=== PATIENT | female | born 1975 | race Caucasian/White ===

== ENCOUNTER 2017-04-13 19:38 | Emergency (ER) | payer OTHER ==
--- NOTE | 2017-04-13 22:00 | ED NURSING NOTES ---
Clinical Report - Nurses [facility] [address] [place] [address] 04/13/2017 19:39 Patient: HELLEN GRANADOS TRIAGE Triage time 1940. Acuity: LEVEL 3. Chief Complaint: ANXIETY and (pt states that she has been very anxious because of negative energy from people yelling and fighting--and that negative energy "saps the energy " out of her). --20:02 Sherrie Fischer R.N. 19:40 04/13/17. BP: 169/102. HR: 110. RR: 20. O2 saturation: 100%. Temp: 98.5 F. Pain level now: 0/10. --20:02 Sherrie Fischer R.N. Weight: 45.3 kg stated. Height/Length: 61 inches Per Patient. BMI: 18.9. --19:56 Sherrie Fischer R.N. Medications Gabapentin Oral (Tablet 800 mg) 1 tablet, 3x a day. HydrOXYzine HCl Oral 25 mg. Zoloft Oral 25 mg, daily. --19:48 Sherrie Fischer R.N. Motrin 400mg today at 0800. --19:49 Sherrie Fischer R.N. Tylenol 500mg po this a 0800. --19:50 Sherrie Fischer R.N. Allergies No Known Drug Allergy. --19:47 Sherrie Fischer R.N. History Arrived by EMS. Historian: patient. Unaccompanied. Primary physician (bing muniz has appointment with [facility] on Saturday -in [place] for [facility]). ( "Im just so overloaded""I can't keep living like this' "I have no control about being ok right now"). She has had anxiety. ( pt states she has also been having vag bleeding x 2 months "almost non-stop". Pt also has possible broken toe to rt 5th toe, hit on wall about 2 weeks ago). PAST MEDICAL HX: Last normal menstrual period- iud. SOCIAL HX: Light tobacco smoker (cigarette)- less than 1/2 a pack per day. Occasional alcohol use. History of drug use: methamphetamines. (veryoccasionally). SELF HARM ASSESSMENT: A self harm assessment was performed. The patient answered "yes" to the question "Have you recently felt down, depressed, or hopeless?" and "Do you have any dangerous items in your possession?" and "no" to the question "Have you noticed less interest or pleasure in doing things?", "Are you here because you tried to hurt yourself?", "Have you ever tried to hurt yourself before today?" and "Have you recently had thoughts about harming or killing others?". Unable to assess the patient in regard to the question "Do you have thoughts of harming or killing yourself?". (I can't keep living like this, but answers "no" when asked if she wants , has a razorblade she found on the ground, she has been walking into traffic). --20:02 Sherrie Fischer R.N. PROBLEMS: Lifestyle / Substance Problems. Narcotic Withdrawal. Sinus Tachycardia. Fibromyalgia. Myalgias. Ovarian Cyst. Cellulitis. --19:56 Sherrie Fischer R.N. PTSD. --20:01 Sherrie Fischer R.N. ADDITIONAL SURGERIES: . Oophorectomy. Tubal Ligation. --19:56 Sherrie Fischer R.N. Interventions ID band on patient. To treatment room. --20:02 Sherrie Fischer R.N. PHYSICAL ASSESSMENT 1940. To room via stretcher. Patient gowned. GENERAL / NEURO / PSYCH: Alert. Appears anxious. Speech within normal limits. Patient appears calm and cooperative. Good eye contact. RESPIRATORY: Respirations not labored. CVS: Capillary refill less than 2 seconds. GI / : Abdomen soft. SKIN: ( rt 5th toe swelling and painful.). --21:27 Sherrie Fischer R.N. NURSING PROGRESS NOTES 19:40. Patient gowned. Head of bed elevated. Reassurance given. Patient identifiers checked. Call light placed in reach. Side rails up. Bed placed in lowest position. Patient ready for evaluation- chart flagged. --20:02 Sherrie Fischer R.N. 20:30. Patient ID band checked for patient name and birthdate: patient confirmed. Clean catch urine collected with return of yellow-colored clear urine; sample sent to lab for urinalysis, culture and drug screen. Specimen labeled in the presence of the patient. --21:03 Sherrie Fischer R.N. 20:45 04/13/2017 Site #1 started via IV in the right antecubital space with an 22g angiocath; one attempt. Blood drawn: rainbow set and pediatric tubes. Labeled in the presence of the patient and sent to the lab. Saline lock flushed with 10 mL saline. --21:03 Sherrie Fischer R.N. 20:45 04/13/2017 Started bag #1 1000 mL IV Fluids IV NS (Saline); at 1000 mL/hr over 1 hour(s) via site #1 via IV pump. IV patency established. IV site checked: no pain, redness, or swelling. IV flushed thoroughly pre- and post-medication administration. --21:04 Sherrie Fischer R.N. 20:50 04/13/2017 Benadryl (DiphenhydrAMINE HCl) IVP 50 mg given over 2 minute(s) via site #1. IV patency established. IV site checked: no pain, redness, or swelling. IV flushed thoroughly pre- and post-medication administration. IVP given by RN. --21:05 Sherrie Fischer R.N. 20:45 IV started and dlabs drawn. --21:25 Sherrie Fischer R.N. 21:15. ( Pt given po food and fluids. has turned off IV fluidsx x 2 now because "it was going too fast" , ERNP notified.). --21:26 Sherrie Fischer R.N. 21:20. ( rt toe prema taped per pt request. and pt given vag pads and mesh panties). --21:28 Sherrie Fischer R.N. 21:30 04/13/2017 Site #1 removed. Bandaid applied (pt pulled out own IV , dressing was placed over site). --22:21 Sherrie Fischer R.N. 21:30 04/13/2017 IV Fluids IV NS Discontinued: bag #1 STOPPED. Total amount infused: 300 mL. IV patency established. IV site checked: no pain, redness, or swelling. IV flushed thoroughly. (pt pulled out IV). --22:21 Sherrie Fischer R.N. 21:30 04/13/2017 IV Saline Lock Drip IV Discontinued: STOPPED. Total amount infused: 0 mL (pt pulled out iv site). --22:22 Sherrie Fischer R.N. 22:00 04/13/2017 Ativan (LORazepam) PO Tablets 1 mg given. Allergies verified, confirmed 5 rights and sedative warning given to the patient. --22:14 Sherrie Fischer R.N. 21:35 Pt out at desk, asking for her clothes and states she wants to go home. Pt has pulled out IV and gone thru drawers to find a bandaid to put on site. ERPA notified. --22:15 Sherrie Fischer R.N. 21:55 Pt given po meds and dc instructions, pt very tearful states "this is the worst night ever" I attempted to console pt telling her that she had stated she was dehydrated and that we were just trying to help her, she continued to have random statements about then universe and energy and how she isn't feeling right. --22:17 Sherrie Fischer R.N. 22:00 Pt given clothing from locker by [facility]. --22:17 Sherrie Fischer R.N. DISPOSITION / DISCHARGE 22:00. Condition at departure: stable. No learning barriers present. Discharge instructions provided and reviewed with the patient. Reviewed referrals (follow up with [facility] as scheduled on Saturday). Patient verbalized understanding. Written instructions provided in Slovenian. The patient was unaccompanied at time of discharge. She left the Emergency Department ambulatory. --22:20 Sherrie Fischer R.N. 22:05 04/13/17. BP: 140/98. HR: 92. RR: 20. O2 saturation: 100%. Temp: deferred. Pain level now: cannot qualify. --22:20 Sherrie Fischer R.N. Locked/Released at 04/13/2017 22:22 by Sherrie Fischer R.N.
--- NOTE | 2017-04-13 22:00 | ED ORDER SUMMARY ---
..... Patient: HELLEN GRANADOS OrderSheet [facility] VisitID: [id number] [place] [address] 41y, F Registration Date/Time: 04/13/2017 ORDER SHEET Weight: 45.3 kg (stated) Allergies: No Known Drug Allergy GENERAL ORDERS: CBC w Diff Urgent (20:14 04/13/2017 HBivens A.R.N.P.) (Ack 20:16 CHagerty ER Head Athletic Trainer) (21:03 DDean R.N.) CMP Urgent (20:14 04/13/2017 HBivens A.R.N.P.) (Ack 20:16 CHagerty ER Head Athletic Trainer) (21:04 DDean R.N.) Serum Qualitative Urgent (20:14 04/13/2017 HBivens A.R.N.P.) (Ack 20:16 CHagerty ER Head Athletic Trainer) (21:04 DDean R.N.) MEDICATION ORDERS: Ativan PO 1 mg (HIGH ALERT MEDICATION, NOW) (22:00 04/13/2017 HBivens A.R.N.P.) (22:14 DDean R.N.) IV FLUIDS: IV NS : initial bolus 1000 mL (1000 mL/hr), then none - (NOW) (20:13 04/13/2017 HBivens A.R.N.P.) (Ack 20:25 DDean R.N.) (21:04 DDean R.N.) IV Saline Lock (20:14 04/13/2017 HBivens A.R.N.P.) (Ack 20:25 DDean R.N.) (21:04 DDean R.N.) Benadryl IV 50 mg (NOW) (20:21 04/13/2017 HBivens A.R.N.P.) (Ack 20:25 DDean R.N.) (21:05 DDean R.N.) ORDER SHEET NOTES: [Electronically signed by Sherrie Fischer R.N. (22:22 04/13/2017)] [Electronically signed by Kaila Quintana.R.N.PRic (23:00 04/13/2017)] [Electronically locked/signed by AmadoSherrie R.N. (22:22 04/13/2017)]
--- NOTE | 2017-04-13 22:00 | ED CLINICAL REPORT ---
Clinical Report - Physicians/Mid Levels [facility] [address] [place] [address] 04/13/2017 19:39 Patient: HELLEN GRANADOS Time Seen: 19:59; initial patient contact, initial documentation, patient care assumed. Arrived- By ambulance. Historian- patient. History limited by vague historian. HISTORY OF PRESENT ILLNESS Chief Complaint: ANXIOUS. This started unknown. The patient has experienced situational problems. Has not been sleeping. She has had anxiety. No self-injury inflicted or hallucinations. No injury is present. has appt Saturday with [facility]. Similar symptoms previously: Seen in the ED. Diagnosis: situational problems (and anxiety). Recent medical care: The patient was seen recently by a health care provider. ( pt has had #35 er visits, and is at the ER every almost every day, just in March: March 18, 16, 15, 14, 13 (2 visits), 12, 8, 6 for same issues as today, anxiety, toe injury and vag bleeding). REVIEW OF SYSTEMS No chest pain. c/o hitting her R pinkie toe on wall about a 2 weeks ago, c/o vag bleeding and heavy period. All systems otherwise negative, except as recorded above. PAST HISTORY See nurses notes. ( PROBLEMS: Lifestyle / Substance Problems. Narcotic Withdrawal. Sinus Tachycardia. Fibromyalgia. Myalgias. Ovarian Cyst. Cellulitis. --19:56 Sherrie Fischer, R.N. ADDITIONAL SURGERIES: . Oophorectomy. Tubal Ligation. --19:56 Sherrie Fischer, R.N.). SOCIAL HISTORY Light tobacco smoker. Occasional alcohol use. History of heavy drug use: methamphetamines. pt is homeless. FAMILY HISTORY Negative. ADDITIONAL NOTES The nursing notes have been reviewed with agreement regarding the chief complaint, HPI, ROS, PMH and patient medications and allergies. PHYSICAL EXAM Vital Signs: 04/13/2017 19:40 BP: 169/102. HR: 110. RR: 20. O2 saturation: 100%. Temp: 98.5 F. Pain level now: 0/10. Have been reviewed as abnormal and appear to be correct. Hypertensive. Tachycardic. Respiratory rate normal. Temperature normal. Oxygen saturation normal. Appearance: Alert. No acute distress. Appearance is normal. Eyes: Pupils equal, round and reactive to light. Neck: Normal inspection. Neck supple. CVS: Normal heart rate and rhythm. Heart sounds normal. Respiratory: Breath sounds normal. Chest nontender. Abdomen: Soft and nontender. Back: No tenderness. Skin: Skin warm and dry. Normal skin color. Normal skin turgor. Extremities: Extremities exhibit normal ROM. No lower extremity edema. Psych / Neuro: Oriented X 3. Abnormal mood and affect. Flat affect. Speech normal. Cognition normal. Thought process and content normal. No apparent hallucinations or delusions. Denies suicidal thoughts. Patient does not express homicidal thoughts. Insight and judgement normal. Cranial nerves normal (as tested). No cerebellar findings. No motor deficit. No sensory deficit. LABS, X-RAYS, AND EKG Laboratory Tests: Serum Qualitative: (MAYELIN: 04/13/2017 20:45) ( [facility] 04/13/2017 21:28) Final results Test Result Flag Units (Reference) , SERUM NEGATIVE CBC w Diff: (MAYELIN: 04/13/2017 20:45) ( [facility] 04/13/2017 21:20) Final results Test Result Flag Units (Reference) WHITE BLOOD COUNT 7.3 K/uL (4.5-11.5) RED BLOOD COUNT 4.20 M/uL (4.00-5.20) HEMOGLOBIN 13.0 gm/dL (12.0-16.0) HEMATOCRIT 38.9 % (36.0-46.0) MEAN CELL VOLUME 93 fL (80-100) MEAN CORPUSCULAR HGB 31 pg (26-34) MEAN CORPUSCULAR HGB CONC 34 g/dL (31-37) RED CELL DISTRIBUTION WIDTH 13.3 % (11.6-14.8) PLATELET COUNT 401 H K/uL (150-400) NEUTROPHIL % 59.6 % (50-75) LYMPH % 30.0 % (25-40) MONO % 7.4 % (3-14) EOSINOPHIL % 1.3 % (0-4) BASOPHIL % 1.7 % (0-2) CMP: (MAYELIN: 04/13/2017 20:45) ( MsgRcvd 04/13/2017 21:32) Final results Test Result Flag Units (Reference) GLUCOSE 91 mg/dL (70-110) BUN 15 mg/dL (7-18) CREATININE 0.7 mg/dL (0.6-1.3) Estimated GFR >60 mL/min Estimated GFR- >60 mL/min Note: Persistent reduction over 3 months in eGFR<60 mL/min/1.73 m2 defines CKD. Patients with eGFR values>=60 mL/min/1.73 m2 may also have CKD if evidence ofpersistent proteinuria. Additional information may be foundat www.kidney.org. SODIUM 136 mmol/L (136-145) POTASSIUM 3.8 mmol/L (3.5-5.1) CHLORIDE 103 mmol/L (98-107) CARBON DIOXIDE 26 mmol/L (21-32) CALCIUM 9.1 mg/dL (8.5-10.1) TOTAL PROTEIN 7.5 g/dL (6.4-8.2) ALBUMIN 4.2 g/dL (3.3-5.0) BILIRUBIN, TOTAL 0.4 mg/dL (0.0-1.0) ALKALINE PHOSPHATASE 83 U/L (46-116) AST (SGOT) 21 U/L (15-37) ALT (SGPT) 24 U/L (12-78) . PROGRESS AND PROCEDURES Course of Care: after speaking with pt decided to treat her 'dehydration' and check her blood levels, give ivf, and let her f/u Saturday with [facility], pt asking for meds to calm her nerves pt has lindsey for #35 ER visits, see report for full details 2099. nurse reporting pt not happy with benadryl and would like ativan 2104. at bedside, pt playing with iv, took it off pump and turned clamp off, asking for ativan, pt informed that I was not that comfortable with giving her ativan after her substance abuse and multiple er visits for same issues, nurse also caught pt going thru the drawers, and pt asking for food, pt instructed to stop playing with her iv and equipment and stuff in room, or we would get security involved went to room to discuss lab results, pt playing with equipment again, was in drawer getting out tape and cotton, asked me to help her take iv out, iv removed and bandage applied without issues, bleeding controlled, approx 500ml ns infused pt again asking for ativan and also telling me that she is allergic to benadryl. Patient counseled in person regarding the patient's stable condition and diagnosis. Differential Diagnosis: Other possible considerations: substance abuse, anxiety, anemia, toe fx vs sprain, dysmenorrhea, , miscarriage. Above considerations are based on history, physical exam, reassessment and laboratory data. Differential diagnosis was discussed with patient. Disposition: Discharged home in good and improved condition (22:00). Condition: good and stable. CLINICAL IMPRESSION Chronic substance abuse- methamphetamines with intoxication and anxiety. Anxiety reaction. INSTRUCTIONS Avoid stimulants (such as cigarettes, coffee, cold medicines, sinus medicines, street drugs). Warnings: GENERAL WARNINGS: Return or contact your physician immediately if your condition worsens or changes unexpectedly, if not improving as expected, or if other problems arise. Specifically return if problem worsens. Follow-up: Follow up with a psychiatrist [facility] Saturday as scheduled even if well. Summary of care provided to patient. Understanding of the discharge instructions verbalized by patient. (Electronically signed by Kaila Quintana A.R.N.P. 04/13/2017 23:00)
--- NOTE | 2017-04-13 22:00 | ED NURSING NOTES ---
Clinical Report - Nurses [facility] [address] [place] [address] 04/13/2017 19:39 Patient: HELLEN GRANADOS TRIAGE Triage time 1940. Acuity: LEVEL 3. Chief Complaint: ANXIETY and (pt states that she has been very anxious because of negative energy from people yelling and fighting--and that negative energy "saps the energy " out of her). --20:02 Sherrie Fischer R.N. 19:40 04/13/17. BP: 169/102. HR: 110. RR: 20. O2 saturation: 100%. Temp: 98.5 F. Pain level now: 0/10. --20:02 Sherrie Fischer R.N. Weight: 45.3 kg stated. Height/Length: 61 inches Per Patient. BMI: 18.9. --19:56 Sherrie Fischer R.N. Medications Gabapentin Oral (Tablet 800 mg) 1 tablet, 3x a day. HydrOXYzine HCl Oral 25 mg. Zoloft Oral 25 mg, daily. --19:48 Sherrie Fischer R.N. Motrin 400mg today at 0800. --19:49 Sherrie Fischer R.N. Tylenol 500mg po this a 0800. --19:50 Sherrie Fischer R.N. Allergies No Known Drug Allergy. --19:47 Sherrie Fischer R.N. History Arrived by EMS. Historian: patient. Unaccompanied. Primary physician (bing muniz [facility] -in [place] for [facility]). ( "Im just so overloaded""I can't keep living like this' "I have no control about being ok right now"). She has had anxiety. ( pt states she has also been having vag bleeding x 2 months "almost non-stop". Pt also has possible broken toe to rt 5th toe, hit on wall about 2 weeks ago). PAST MEDICAL HX: Last normal menstrual period- iud. SOCIAL HX: Light tobacco smoker (cigarette)- less than 1/2 a pack per day. Occasional alcohol use. History of drug use: methamphetamines. (veryoccasionally). SELF HARM ASSESSMENT: A self harm assessment was performed. The patient answered "yes" to the question "Have you recently felt down, depressed, or hopeless?" and "Do you have any dangerous items in your possession?" and "no" to the question "Have you noticed less interest or pleasure in doing things?", "Are you here because you tried to hurt yourself?", "Have you ever tried to hurt yourself before today?" and "Have you recently had thoughts about harming or killing others?". Unable to assess the patient in regard to the question "Do you have thoughts of harming or killing yourself?". (I can't keep living like this, but answers "no" when asked if she wants , has a razorblade she found on the ground, she has been walking into traffic). --20:02 Sherrie Fischer R.N. PROBLEMS: Lifestyle / Substance Problems. Narcotic Withdrawal. Sinus Tachycardia. Fibromyalgia. Myalgias. Ovarian Cyst. Cellulitis. --19:56 Sherrie Fischer R.N. PTSD. --20:01 Sherrie Fischer R.N. ADDITIONAL SURGERIES: . Oophorectomy. Tubal Ligation. --19:56 Sherrie Fischer R.N. Interventions ID band on patient. To treatment room. --20:02 Sherrie Fischer R.N. PHYSICAL ASSESSMENT 1940. To room via stretcher. Patient gowned. GENERAL / NEURO / PSYCH: Alert. Appears anxious. Speech within normal limits. Patient appears calm and cooperative. Good eye contact. RESPIRATORY: Respirations not labored. CVS: Capillary refill less than 2 seconds. GI / : Abdomen soft. SKIN: ( rt 5th toe swelling and painful.). --21:27 Sherrie Fischer R.N. NURSING PROGRESS NOTES 19:40. Patient gowned. Head of bed elevated. Reassurance given. Patient identifiers checked. Call light placed in reach. Side rails up. Bed placed in lowest position. Patient ready for evaluation- chart flagged. --20:02 Sherrie Fischer R.N. 20:30. Patient ID band checked for patient name and birthdate: patient confirmed. Clean catch urine collected with return of yellow-colored clear urine; sample sent to lab for urinalysis, culture and drug screen. Specimen labeled in the presence of the patient. --21:03 Sherrie Fischer R.N. 20:45 04/13/2017 Site #1 started via IV in the right antecubital space with an 22g angiocath; one attempt. Blood drawn: rainbow set and pediatric tubes. Labeled in the presence of the patient and sent to the lab. Saline lock flushed with 10 mL saline. --21:03 Sherrie Fischer R.N. 20:45 04/13/2017 Started bag #1 1000 mL IV Fluids IV NS (Saline); at 1000 mL/hr over 1 hour(s) via site #1 via IV pump. IV patency established. IV site checked: no pain, redness, or swelling. IV flushed thoroughly pre- and post-medication administration. --21:04 Sherrie Fischer R.N. 20:50 04/13/2017 Benadryl (DiphenhydrAMINE HCl) IVP 50 mg given over 2 minute(s) via site #1. IV patency established. IV site checked: no pain, redness, or swelling. IV flushed thoroughly pre- and post-medication administration. IVP given by RN. --21:05 Sherrie Fischer R.N. 20:45 IV started and dlabs drawn. --21:25 Sherrie Fischer R.N. 21:15. ( Pt given po food and fluids. has turned off IV fluidsx x 2 now because "it was going too fast" , ERNP notified.). --21:26 Sherrie Fischer R.N. 21:20. ( rt toe prema taped per pt request. and pt given vag pads and mesh panties). --21:28 Sherrie Fischer R.N. 21:30 04/13/2017 Site #1 removed. Bandaid applied (pt pulled out own IV , dressing was placed over site). --22:21 Sherrie Fischer R.N. 21:30 04/13/2017 IV Fluids IV NS Discontinued: bag #1 STOPPED. Total amount infused: 300 mL. IV patency established. IV site checked: no pain, redness, or swelling. IV flushed thoroughly. (pt pulled out IV). --22:21 Sherrie Fischer R.N. 21:30 04/13/2017 IV Saline Lock Drip IV Discontinued: STOPPED. Total amount infused: 0 mL (pt pulled out iv site). --22:22 Sherrie Fischer R.N. 22:00 04/13/2017 Ativan (LORazepam) PO Tablets 1 mg given. Allergies verified, confirmed 5 rights and sedative warning given to the patient. --22:14 Sherrie Fischer R.N. 21:35 Pt out at desk, asking for her clothes and states she wants to go home. Pt has pulled out IV and gone thru drawers to find a bandaid to put on site. ERPA notified. --22:15 Sherrie Fischer R.N. 21:55 Pt given po meds and dc instructions, pt very tearful states "this is the worst night ever" I attempted to console pt telling her that she had stated she was dehydrated and that we were just trying to help her, she continued to have random statements about then universe and energy and how she isn't feeling right. --22:17 Sherrie Fischer R.N. 22:00 Pt given clothing from locker by [facility]. --22:17 Sherrie Fischer R.N. DISPOSITION / DISCHARGE 22:00. Condition at departure: stable. No learning barriers present. Discharge instructions provided and reviewed with the patient. Reviewed referrals (follow up with [facility] as scheduled on Saturday). Patient verbalized understanding. Written instructions provided in Sinhala. The patient was unaccompanied at time of discharge. She left the Emergency Department ambulatory. --22:20 Sherrie Fischer R.N. 22:05 04/13/17. BP: 140/98. HR: 92. RR: 20. O2 saturation: 100%. Temp: deferred. Pain level now: cannot qualify. --22:20 Sherrie Fischer R.N. Locked/Released at 04/13/2017 22:22 by Sherrie Fischer R.N.
--- NOTE | 2017-04-13 22:00 | ED ORDER SUMMARY ---
..... Patient: HELLEN GRANADOS OrderSheet [facility] VisitID: [id number] [place] [address] 41y, F Registration Date/Time: 04/13/2017 ORDER SHEET Weight: 45.3 kg (stated) Allergies: No Known Drug Allergy GENERAL ORDERS: CBC w Diff Urgent (20:14 04/13/2017 HBivens A.R.N.P.) (Ack 20:16 CHagerty ER Green [employer] Department Supervisor) (21:03 DDean R.N.) CMP Urgent (20:14 04/13/2017 HBivens A.R.N.P.) (Ack 20:16 CHagerty ER [employer] Department Supervisor) (21:04 DDean R.N.) Serum Qualitative Urgent (20:14 04/13/2017 HBivens A.R.N.P.) (Ack 20:16 CHagerty ER [employer] Department Supervisor) (21:04 DDean R.N.) MEDICATION ORDERS: Ativan PO 1 mg (HIGH ALERT MEDICATION, NOW) (22:00 04/13/2017 HBivens A.R.N.P.) (22:14 DDean R.N.) IV FLUIDS: IV NS : initial bolus 1000 mL (1000 mL/hr), then none - (NOW) (20:13 04/13/2017 HBivens A.R.N.P.) (Ack 20:25 DDean R.N.) (21:04 DDean R.N.) IV Saline Lock (20:14 04/13/2017 HBivens A.R.N.P.) (Ack 20:25 DDean R.N.) (21:04 DDean R.N.) Benadryl IV 50 mg (NOW) (20:21 04/13/2017 HBivens A.R.N.P.) (Ack 20:25 DDean R.N.) (21:05 DDean R.N.) ORDER SHEET NOTES: [Electronically signed by Sherrie Fischer R.N. (22:22 04/13/2017)] [Electronically signed by Kaila Quintana.R.N.PRic (23:00 04/13/2017)] [Electronically locked/signed by AmadoSherrie R.N. (22:22 04/13/2017)]
--- NOTE | 2017-04-13 23:01 | ED MED RECONCILIATION SUMMARY ---
Patient: HELLEN GRANADOS Medication Reconciliation Report [facility] VisitID: [id number] [address] [place] [address] 41y, F Registration Date/Time: 04/13/2017 Weight: 45.3 kg Height/Length: 61 in. BMI: 18.9 ALLERGIES: No Known Drug Allergy The patient's Home Medications are listed below: THE FOLLOWING MEDICATIONS NEED TO BE RECONCILED: Gabapentin Oral (800 mg) 1 tablet, 3x a day HydrOXYzine HCl Oral 25 mg Motrin 400mg today at 0800 Tylenol 500mg po this a 0800 Zoloft Oral 25 mg, daily The source(s) of the original Home Medication information: Not obtained. The following Medications were given to the patient in the Emergency Department: IV NS IV Fluids bolus 0, then 1000 mL/hr, administered: 04/13/2017 8:45:00 PM Benadryl [IVP] IVP 50 mg, administered: 04/13/2017 8:50:00 PM Ativan [PO] PO 1 mg, administered: 04/13/2017 10:00:00 PM The following Medications were prescribed to the patient: None.
--- NOTE | 2017-04-13 23:01 | ED MAR SUMMARY ---
..... Medication Administration Record [facility] [address] [place] [address] Patient: HELLEN GRANADOS Visit ID: [id number] 41y, F Weight: 45.3 kg Height/Length: 61 in BMI: 18.9 ALLERGIES: No Known Drug Allergy Start 20:45 04/13/2017 Sherrie Fischer R.N., Stop 21:30 04/13/2017 Sherrie Fischer R.N. Medication Administered: IV NS (SALINE), Dose: IV Fluids over 1 hour(s), Rate: 1000 mL/hr, Dispensed: 1000 mL bag, Site: #1 right AC. Medication Ordered: IV NS : initial bolus 1000 mL (1000 mL/hr), then none - (NOW). Given 20:50 04/13/2017 Sherrie Fischer R.N. Medication Administered: BENADRYL [IVP] (DIPHENHYDRAMINE HCL), Dose: 50 mg IVP over 2 minute(s), Site: #1 right AC. Medication Ordered: Benadryl IV 50 mg (NOW). Given 22:00 04/13/2017 Sherrie Fischer R.N. Medication Administered: ATIVAN [PO] (LORAZEPAM), Dose: 1 mg Tablets PO. Medication Ordered: Ativan PO 1 mg (HIGH ALERT MEDICATION, NOW).
--- NOTE | 2017-04-13 23:01 | ED MAR SUMMARY ---
..... Medication Administration Record [facility] [address] [place] [address] Patient: HELLEN GRANADOS Visit ID: [id number] 41y, F Weight: 45.3 kg Height/Length: 61 in BMI: 18.9 ALLERGIES: No Known Drug Allergy Start 20:45 04/13/2017 Sherrie Fischer R.N., Stop 21:30 04/13/2017 Sherrie Fischer R.N. Medication Administered: IV NS (SALINE), Dose: IV Fluids over 1 hour(s), Rate: 1000 mL/hr, Dispensed: 1000 mL bag, Site: #1 right AC. Medication Ordered: IV NS : initial bolus 1000 mL (1000 mL/hr), then none - (NOW). Given 20:50 04/13/2017 Sherrie Fischer R.N. Medication Administered: BENADRYL [IVP] (DIPHENHYDRAMINE HCL), Dose: 50 mg IVP over 2 minute(s), Site: #1 right AC. Medication Ordered: Benadryl IV 50 mg (NOW). Given 22:00 04/13/2017 Sherrie Fischer R.N. Medication Administered: ATIVAN [PO] (LORAZEPAM), Dose: 1 mg Tablets PO. Medication Ordered: Ativan PO 1 mg (HIGH ALERT MEDICATION, NOW).
--- NOTE | 2017-04-13 23:01 | ED DISCHARGE INSTRUCTIONS ---
Patient: HELLEN GRANADOS General Instructions 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 Anxiety reaction. INSTRUCTIONS Avoid stimulants (such as cigarettes, coffee, cold medicines, sinus medicines, street drugs). Warnings: GENERAL WARNINGS: Return or contact your physician immediately if your condition worsens or changes unexpectedly, if not improving as expected, or if other problems arise. Specifically return if problem worsens. Follow-up: Follow up with a psychiatrist [facility] Saturday as scheduled even if well. Summary of care provided to patient. Understanding of the discharge instructions verbalized by patient. ADDITIONAL INFORMATION Stress Reaction Anxiety is the feeling we all get when we think something bad might happen. It is a normal response to stress and usually causes only a mild reaction. When anxiety becomes more severe, emotions may interfere with daily life. In some cases, you may not even be aware of what it is youre anxious about! During an anxiety reaction, you may feel like you are helpless, nervous, depressed or irritable. Your body may show signs of anxiety in many ways. You may experience dry mouth, shakiness, dizziness, weakness, trouble breathing, chest pressure, headache, nausea, diarrhea, tiredness, inability to sleep or sexual problems. Home Care: 1) Try to locate the sources of stress in your life. They may not be obvious! These may include: -- Daily hassles of life which pile up (traffic jams, missed appointments, car troubles, etc.) -- Major life changes, both good (new baby, job promotion) and bad (loss of job, loss of loved one) -- Overload: feeling that you have too many responsibilities and can't take care of all of them at once -- Feeling helpless, feeling that your problems are beyond what youre able to solve 2) Notice how your body reacts to stress. Learn to listen to your body signals. This will help you take action before the stress becomes severe. 3) When you can, do something about the source of your stress. (Avoid hassles, limit the amount of change that happens in your life at one time and take a break when you feel overloaded). 4) Unfortunately, many stressful situations cannot be avoided. It is necessary to learn HOW TO MANAGE STRESS better. There are many proven methods that will reduce your anxiety. These include simple things like exercise, good nutrition and adequate rest. Also, there are certain techniques that are helpful: relaxation and breathing exercises, visualization, biofeedback and meditation. For more information about this, consult your doctor or go to a local bookstore and review the many books and tapes available on this subject. Follow Up If you feel that your anxiety is not responding to self-help measures, contact your doctor or make an appointment with a counselor. Get Prompt Medical Attention if any of the following occur: -- Your symptoms get worse -- Chest pain or trouble breathing -- Severe headache not relieved by rest and mild pain reliever -- Rapid or irregular heartbeat, fainting Drug Abuse Use and abuse of such drugs as marijuana, amphetamines (speed, crank), cocaine, heroin or prescription pain medicines (Vicodin, codeine), sedatives and sleeping pills (Valium, Klonopin), PCP, mescaline and LSD may lead to addiction or dependence. Once this occurs, you are at greater risk for any of the following: Craving for the drug and unable to stop using the drug even though you think you want to stop (psychological dependence) Drug withdrawal symptoms if you stop taking the drug (physical dependence) Loss of your job or your family Arrest, conviction and custodial sentence for possession of an illegal substance or for driving under the influence of such a substance Accidental injuries to yourself or others while you are under the influence of the drug (in a car or at home). HIV infection (much greater risk if you use IV drugs) Other sexually transmitted diseases (herpes, chlamydia, gonorrhea and others) Severe and fatal infection of the heart valves (if you use IV drugs) Stroke, heart attack, hepatitis B or C, kidney failure from overdose Home Care: Admit you have a drug problem. Ask for help from your family and close friends. Seek professional help. This could be in the form of individual psychotherapy or counseling or an outpatient, inpatient, or residential drug treatment program. Join a self-help group for drug abuse. Avoid friends who abuse drugs themselves or tempt you to continue abusing drugs. Eat a balanced diet and begin a regular exercise program. Follow Up with your doctor or as advised by our staff. Contact one of the resources below for help. National [place] on Alcoholism and Drug Dependence www.ncadd.org 027-200-HNRJ Narcotics Anonymous www.na.org 144-704-1932 National Alcohol and Substance Abuse Information Center (for referral to treatment programs) www.addictionPrinciple Power.[employer] 230-853-6709 Get Prompt Medical Attention if any of the following occur: Agitation, anxiety, unable to sleep Unintended weight loss (more than 10 to 15 pounds over 3 months) Seizure Chest pain Fever of 100.4F (38C) or higher, or as directed by your healthcare provider Excess drowsiness or inability to be awakened Shortness of breath Slow breathing under 8 breaths per minute Cough with colored sputum Redness, swelling or tenderness at an injection site You have been given the following additional information: Anxiety Reaction Drug Abuse (Electronically signed by Kaila Quintana A.R.N.P. 04/13/2017 23:00)
--- NOTE | 2017-04-13 23:01 | ED DISCHARGE INSTRUCTIONS ---
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 Anxiety reaction. INSTRUCTIONS Avoid stimulants (such as cigarettes, coffee, cold medicines, sinus medicines, street drugs). Warnings: GENERAL WARNINGS: Return or contact your physician immediately if your condition worsens or changes unexpectedly, if not improving as expected, or if other problems arise. Specifically return if problem worsens. Follow-up: Follow up with a psychiatrist [facility] Saturday as scheduled even if well. Summary of care provided to patient. Understanding of the discharge instructions verbalized by patient. ADDITIONAL INFORMATION Stress Reaction Anxiety is the feeling we all get when we think something bad might happen. It is a normal response to stress and usually causes only a mild reaction. When anxiety becomes more severe, emotions may interfere with daily life. In some cases, you may not even be aware of what it is youre anxious about! During an anxiety reaction, you may feel like you are helpless, nervous, depressed or irritable. Your body may show signs of anxiety in many ways. You may experience dry mouth, shakiness, dizziness, weakness, trouble breathing, chest pressure, headache, nausea, diarrhea, tiredness, inability to sleep or sexual problems. Home Care: 1) Try to locate the sources of stress in your life. They may not be obvious! These may include: -- Daily hassles of life which pile up (traffic jams, missed appointments, car troubles, etc.) -- Major life changes, both good (new baby, job promotion) and bad (loss of job, loss of loved one) -- Overload: feeling that you have too many responsibilities and can't take care of all of them at once -- Feeling helpless, feeling that your problems are beyond what youre able to solve 2) Notice how your body reacts to stress. Learn to listen to your body signals. This will help you take action before the stress becomes severe. 3) When you can, do something about the source of your stress. (Avoid hassles, limit the amount of change that happens in your life at one time and take a break when you feel overloaded). 4) Unfortunately, many stressful situations cannot be avoided. It is necessary to learn HOW TO MANAGE STRESS better. There are many proven methods that will reduce your anxiety. These include simple things like exercise, good nutrition and adequate rest. Also, there are certain techniques that are helpful: relaxation and breathing exercises, visualization, biofeedback and meditation. For more information about this, consult your doctor or go to a local bookstore and review the many books and tapes available on this subject. Follow Up If you feel that your anxiety is not responding to self-help measures, contact your doctor or make an appointment with a counselor. Get Prompt Medical Attention if any of the following occur: -- Your symptoms get worse -- Chest pain or trouble breathing -- Severe headache not relieved by rest and mild pain reliever -- Rapid or irregular heartbeat, fainting Drug Abuse Use and abuse of such drugs as marijuana, amphetamines (speed, crank), cocaine, heroin or prescription pain medicines (Vicodin, codeine), sedatives and sleeping pills (Valium, Klonopin), PCP, mescaline and LSD may lead to addiction or dependence. Once this occurs, you are at greater risk for any of the following: Craving for the drug and unable to stop using the drug even though you think you want to stop (psychological dependence) Drug withdrawal symptoms if you stop taking the drug (physical dependence) Loss of your job or your family Arrest, conviction and fci sentence for possession of an illegal substance or for driving under the influence of such a substance Accidental injuries to yourself or others while you are under the influence of the drug (in a car or at home). HIV infection (much greater risk if you use IV drugs) Other sexually transmitted diseases (herpes, chlamydia, gonorrhea and others) Severe and fatal infection of the heart valves (if you use IV drugs) Stroke, heart attack, hepatitis B or C, kidney failure from overdose Home Care: Admit you have a drug problem. Ask for help from your family and close friends. Seek professional help. This could be in the form of individual psychotherapy or counseling or an outpatient, inpatient, or residential drug treatment program. Join a self-help group for drug abuse. Avoid friends who abuse drugs themselves or tempt you to continue abusing drugs. Eat a balanced diet and begin a regular exercise program. Follow Up with your doctor or as advised by our staff. Contact one of the resources below for help. National [place] on Alcoholism and Drug Dependence www.ncadd.org 511-344-PEQM Narcotics Anonymous www.na.org 521-503-7159 National Alcohol and Substance Abuse Information Center (for referral to treatment programs) www.addictionAstute Networks.[employer] 799-742-6344 Get Prompt Medical Attention if any of the following occur: Agitation, anxiety, unable to sleep Unintended weight loss (more than 10 to 15 pounds over 3 months) Seizure Chest pain Fever of 100.4F (38C) or higher, or as directed by your healthcare provider Excess drowsiness or inability to be awakened Shortness of breath Slow breathing under 8 breaths per minute Cough with colored sputum Redness, swelling or tenderness at an injection site You have been given the following additional information: Anxiety Reaction Drug Abuse (Electronically signed by Kaila Quintana A.R.N.P. 04/13/2017 23:00)
--- NOTE | 2017-04-13 23:01 | ED MED RECONCILIATION SUMMARY ---
Patient: HELLEN GRANADOS Medication Reconciliation Report [facility] VisitID: [id number] [address] [place] [address] 41y, F Registration Date/Time: 04/13/2017 Weight: 45.3 kg Height/Length: 61 in. BMI: 18.9 ALLERGIES: No Known Drug Allergy The patient's Home Medications are listed below: THE FOLLOWING MEDICATIONS NEED TO BE RECONCILED: Gabapentin Oral (800 mg) 1 tablet, 3x a day HydrOXYzine HCl Oral 25 mg Motrin 400mg today at 0800 Tylenol 500mg po this a 0800 Zoloft Oral 25 mg, daily The source(s) of the original Home Medication information: Not obtained. The following Medications were given to the patient in the Emergency Department: IV NS IV Fluids bolus 0, then 1000 mL/hr, administered: 04/13/2017 8:45:00 PM Benadryl [IVP] IVP 50 mg, administered: 04/13/2017 8:50:00 PM Ativan [PO] PO 1 mg, administered: 04/13/2017 10:00:00 PM The following Medications were prescribed to the patient: None.
== END 2017-04-13 22:05 | disposition home or self-care (01) ==
LOC: ED SRH 19:38
DX: F15.180 Other stimulant abuse with stimulant-induced anxiety disorder (principal); Z79.899 Other long term (current) drug therapy; F17.210 Nicotine dependence, cigarettes, uncomplicated
CPT/HCPCS: 90100; 95059; 98428